=== PATIENT | female | born 1950 | race Caucasian/White ===

== ENCOUNTER 2018-08-23 06:58 | Day surgery (SDC) | payer MEDICARE ==
[~2018-08-23 06:58] MED LIST: Acetaminophen TAB* 325 MG PO PRN
[2018-08-23] MEDS ORDERED: Midazolam* 1 MG/ML 2 ML VIAL (2 MG) ONE (08:00)
[2018-08-23] MEDS ORDERED: fentaNYL* 50 MCG/ML 2 ML VIAL (100 MCG VIAL) ONE (08:17)
[2018-08-23 08:47] VITALS: BP 106/67
--- NOTE | 2018-08-23 09:13 | OP ---
DATE OF OPERATION: 08/23/18 - [facility] DATE OF : 50 SURGEON: Raz Liu MD. ANESTHESIA: Monitored anesthesia care. PREOPERATIVE DIAGNOSIS: Cataract, left eye. POSTOPERATIVE DIAGNOSIS: Cataract, left eye. OPERATIVE PROCEDURE: Extracapsular cataract extraction of the left eye with intraocular lens implant. IMPLANT: SN60WF 13.0 diopter lens, left eye. COMPLICATIONS: None. DESCRIPTION OF PROCEDURE: The patient was given phenylephrine 2.5 % and cyclopentolate 1% eye drops to the operative eye in the preoperative area. The patient was taken to the operating room where a time-out was taken to identify the correct patient, site, and side of surgery. The patient's left eye was prepped and draped in the usual sterile fashion with 5% Betadine. A second time- out was taken to verify the correct patient, side, and site of surgery, as well as the correct lens implant. A lid speculum was placed to the left eye. A 1mm paracentesis blade was used to make a clear corneal incision. Preservative-free 1% lidocaine was injected into the anterior chamber. DisCoVisc was then injected into the anterior chamber. A 2.75 mm keratome blade was used to make a triplanar incision. A cystotome initiated a capsulorrhexis, which was completed with Utrata forceps in a continuous and curvilinear manner. Hydrodissection of the lens was performed with BSS on a cannula. The lens could be spun in a capsular bag. The phacoemulsification handpiece was used with a divide-and- conquer technique to remove the nucleus. The I/A handpiece then removed the residual cortical lens material. DisCoVisc was injected to inflate the capsular bag. The planned SN60WF 13.0 diopter lens was injected into the capsular bag. The residual DisCoVisc was removed from the eye with the I/A handpiece. The corneal incisions were hydrated and no leaks occurred at physiologic pressure around 20 mmHg per palpation. The lid speculum was removed and drapes were removed. Maxitrol ointment was placed to the surface of the operative eye. An adhesive patch and shield was then placed on the operative eye. The patient was taken to the postoperative area in stable condition. [id number]/[facility] #: [id number] [facility]
[2018-08-23] MEDS ORDERED: acetaZOLAMIDE TAB* 250 MG ONE (10:26)
[2018-08-23] MEDS ORDERED: Lidocaine 1%* 5 ML VIAL ONE (10:26)
[2018-08-23] MEDS ORDERED: Neomycin/Polymy/Dex OPHTH.OIN* 3.5 GM ONE (10:26)
[2018-08-23] MEDS ORDERED: Cyclopentolate 1% OPTH.SOL* 2 ML BTL ONE (10:26)
[2018-08-23] MEDS ORDERED: Ketorolac 0.5% OPHTH (NF) 0.5 % 5 ML BTL ONE (10:26)
[2018-08-23] MEDS ORDERED: Tropicamide 1% OPTH.SOL* BTL ONE (10:26)
[2018-08-23] MEDS ORDERED: Phenylephrine 2.5% OPTH.SOL* 2 ML BTL ONE (10:26)
[2018-08-23] MEDS ORDERED: Povidone Iodine 5% OPTH* 30 ML BTL ONE (10:26)
[2018-08-23] MEDS ORDERED: Tetracaine 0.5% OPTH.SOL 4 ML* 1 DROP BTL ONE (10:26)
== END 2018-08-23 08:55 | disposition home or self-care (01) ==
LOC: OREAST 06:58
PROVIDERS: ATTEND Student in an Organized Health Care Education/Training Program
DX: H25.12 Age-related nuclear cataract, left eye (principal); E11.9 Type 2 diabetes mellitus without complications; Z79.84 Long term (current) use of oral hypoglycemic drugs; F98.8 Other specified behavioral and emotional disorders with onset usually occurring in childhood and adolescence; M79.7 Fibromyalgia; E88.81 Metabolic syndrome and other insulin resistance
CPT/HCPCS: A9270-GY; J2250; J3010; V2632

== ENCOUNTER 2018-08-30 07:31 | Day surgery (SDC) | payer MEDICARE ==
[2018-08-30] MEDS ORDERED: Tetracaine 0.5% OPTH.SOL 4 ML* 1 DROP BTL ONE (08:10)
[2018-08-30] MEDS ORDERED: Lidocaine 1%* 5 ML VIAL ONE (08:10)
[2018-08-30] MEDS ORDERED: Neomycin/Polymy/Dex OPHTH.OIN* 3.5 GM ONE (08:10)
[2018-08-30] MEDS ORDERED: Ketorolac 0.5% OPHTH (NF) 0.5 % 5 ML BTL ONE (08:10)
[2018-08-30] MEDS ORDERED: Cyclopentolate 1% OPTH.SOL* 2 ML BTL ONE (08:10)
[2018-08-30] MEDS ORDERED: Povidone Iodine 5% OPTH* 30 ML BTL ONE (08:10)
[2018-08-30] MEDS ORDERED: acetaZOLAMIDE TAB* 250 MG ONE (08:10)
[2018-08-30] MEDS ORDERED: Tropicamide 1% OPTH.SOL* BTL ONE (08:10)
[2018-08-30] MEDS ORDERED: Phenylephrine 2.5% OPTH.SOL* 2 ML BTL ONE (08:10)
[2018-08-30] MEDS ORDERED: Midazolam* 1 MG/ML 2 ML VIAL (2 MG) ONE ×2 (08:22→09:14)
[2018-08-30 09:39] VITALS: BP 111/73
--- NOTE | 2018-08-30 15:06 | OP ---
DATE OF OPERATION: 08/30/18 - [facility] DATE OF : 50 SURGEON: Raz Liu MD ANESTHESIA: Monitored anesthesia care. PREOPERATIVE DIAGNOSIS: Cataract, right eye. POSTOPERATIVE DIAGNOSIS: Cataract, right eye. OPERATIVE PROCEDURE: Extracapsular cataract extraction of the right eye with intraocular lens implant. IMPLANT: SN60WF 12.5 diopter lens to the right eye. COMPLICATIONS: None. DESCRIPTION OF PROCEDURE: The patient was given phenylephrine 2.5 % and cyclopentolate 1% eye drops to the operative eye in the preoperative area. The patient was taken to the operating room where a time-out was taken to identify the correct patient, site, and side of surgery. The patient's right eye was prepped and draped in the usual sterile fashion with 5% Betadine. A second time- out was taken to verify the correct patient, side, and site of surgery, as well as the correct lens implant. A lid speculum was placed to the right eye. A 1mm paracentesis blade was used to make a clear corneal incision. Preservative-free 1% lidocaine was injected into the anterior chamber. DisCoVisc was then injected into the anterior chamber. A 2.75 mm keratome blade was used to make a triplanar incision. A cystotome initiated a capsulorrhexis, which was completed with Utrata forceps in a continuous and curvilinear manner. Hydrodissection of the lens was performed with BSS on a cannula. The lens could be spun in a capsular bag. The phacoemulsification handpiece was used with a divide-and- conquer technique to remove the nucleus. The I/A handpiece then removed the residual cortical lens material. DisCoVisc was injected to inflate the capsular bag. The planned SN60WF 12.5 diopter lens was injected into the capsular bag. The residual DisCoVisc was removed from the eye with the I/A handpiece. The corneal incisions were hydrated and no leaks occurred at physiologic pressure around 20 mmHg per palpation. The lid speculum was removed and drapes were removed. Maxitrol ointment was placed to the surface of the operative eye. An adhesive patch and shield was then placed on the operative eye. The patient was taken to the postoperative area in stable condition. [id number]/[facility] #: [id number] [facility]
== END 2018-08-30 09:41 | disposition home or self-care (01) ==
LOC: OREAST 07:31
PROVIDERS: ATTEND Student in an Organized Health Care Education/Training Program
DX: H25.11 Age-related nuclear cataract, right eye (principal); E11.9 Type 2 diabetes mellitus without complications; Z79.84 Long term (current) use of oral hypoglycemic drugs; Z87.891 Personal history of nicotine dependence
CPT/HCPCS: A9270-GY; J2250; V2632

== ENCOUNTER 2019-04-25 15:24 | Emergency (ER) | payer MEDICARE ==
--- NOTE | 2019-04-25 15:47 | UC ---
Hand/Wrist HPI - HPI Summary HPI Summary: 68 yo female presents with RIGHT wrist injury. 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 Had immediate pain in her right wrist with swelling. Pain has improved, but has increased pain with movement. She is right handed. Denies numbness. Nothing OTC for discomfort - History Of Current Complaint Stated Complaint: R WRIST INJURY Time Seen by Provider: 04/25/19 15:47 Hx Obtained From: Patient Onset/Duration: Sudden Onset Severity Initially: Mild Severity Currently: Mild Pain Intensity: 3 Pain Scale Used: 0-10 Numeric - Allergies/Home Medications Allergies/Adverse Reactions: Allergies Allergy/AdvReac Type Severity Reaction Status Date / Time No Known Allergies Allergy Verified 04/25/19 15:52 PMH/Surg Hx/FS Hx/Imm Hx Endocrine History: Diabetes - Surgical History Surgical History: Yes Surgery Procedure, Year, and Place: hysterectomy 1989 - Family History Known Family History: Positive: Non-Contributory - Social History Lives: With Family Alcohol Use: None Substance Use Type: None Smoking Status (MU): Former Smoker Length of Time of Smoking/Using Tobacco: quit 1979 When Did the Patient Quit Smoking/Using Tobacco: 1979 Review of Systems All Other Systems Reviewed And Are Negative: No Constitutional: Positive: Negative Skin: Positive: Negative Respiratory: Positive: Negative Cardiovascular: Positive: Negative Musculoskeletal: Positive: Other: - Right wrist pain Neurological: Positive: Negative Psychological: Positive: Negative Physical Exam - Summary Physical Exam Summary: GENERAL: NAD. WDWN. No pain distress. SKIN: No rashes, sores, lesions, or open wounds. CHEST: No accessory muscle use. Breathing comfortably and in no distress. CV: Pulses intact radial and ulnar. Cap refill <2seconds MSK: Mild edema and TTP at distal radius. Pain with flexion and extension and radial/ulnar deviation. Gripping causes pain. NEURO: Alert. Sensations intact hand and all fingers. PSYCH: Age appropriate behavior. Triage Information Reviewed: Yes Vital Signs: Vital Signs: Temp Pulse Resp BP Pulse Ox 98 F 72 16 133/80 98 04/25/19 15:47 04/25/19 15:47 04/25/19 15:47 04/25/19 15:47 04/25/19 15:47 Vital Signs Reviewed: Yes Diagnostics - Radiology Wrist Radiology Interpretation Completed By: Radiologist Summary of Radiographic Findings: IMPRESSION: TRANSVERSE FRACTURE OF THE DISTAL RADIAL METAPHYSIS. Hand/Wrist Course/Dx - Course Course Of Treatment: XR as above. Discussed with pt and recommended a sugar tong Orthoglass splint, however pt states she prefers not to wear this and wishes for something removable. Discussed that a cock-up splint may not give appropriate limited ROM, but she prefers this. Advised to rest, ice, and elevate her wrist. F/u with Ortho this week. - Differential Dx/Diagnosis Provider Diagnosis: Nondisplaced fracture of distal end of radius Discharge ED - Sign-Out/Discharge Documenting (check all that apply): Patient Departure All imaging exams completed and their final reports reviewed: Yes - Discharge Plan Condition: Stable Disposition: HOME Patient Education Materials: Wrist Fracture in Adults (ED) Referrals: Leatha Mcdonald MD [Primary Care Provider] - Shola Conti MD [Medical Doctor] - As Soon As Possible Additional Instructions: If you develop a fever, shortness of breath, chest pain, new or worsening symptoms - please call your PCP or go to the ED immediately. 1) Rest, Ice, and elevate your wrist to decrease pain and swelling 2) Wear the brace as much as possible 3) Please call Orthopedics at the number below to schedule an appointment within 1 week for a recheck - Billing Disposition and Condition Condition: STABLE Disposition: Home
[2019-04-25 15:52] VITALS: BP 133/80
== END 2019-04-25 16:40 | disposition home or self-care (01) ==
LOC: UCEAST 15:24
DX: S52.501A Unspecified fracture of the lower end of right radius, initial encounter for closed fracture (principal); W01.0XXA Fall on same level from slipping, tripping and stumbling without subsequent striking against object, initial encounter; Y93.89 Activity, other specified; Y92.096 Garden or yard of other non-institutional residence as the place of occurrence of the external cause; E11.9 Type 2 diabetes mellitus without complications; Z87.891 Personal history of nicotine dependence
CPT/HCPCS: 99212; G0463